=== PATIENT | female | born 2000 | race Caucasian/White ===

== ENCOUNTER 2022-06-11 17:00 | Inpatient (IN) | payer MEDICAID ==
--- NOTE | 2022-06-11 20:53 | History and Physical Report ---
History of Present Illness Date of examination: 06/11/22 Date of admission: 06/11/2022 Chief complaint: contractions and bleeding History of present illness: 21 yo female presents to labor and delivery complaining of contractions and bleeding. , EDD06/24/22, 38.1 wks gestation. States had adequate care since 10wks with [facility], and her was without complications. No medical records available at this time. GBS was done but unknown results. Patient also states she was adopted. Past History Past Medical History: no pertinent history Past Surgical History: no surgical history Family/Genetic History: none Social history: no significant social history - Obstetrical History Expected Date of Delivery: 06/24/22 Actual Gestation: 38 Week(s) 1 Day(s) : 2 Para: 0 Hx # Term Pregnancies: 0 Number of Pregnancies: 0 Spontaneous Abortions: 0 Induced : 1 Number of Living Children: 0 Medications and Allergies Allergies Allergy/AdvReac Type Severity Reaction Status Date / Time Penicillins Allergy Severe Anaphylaxis Verified 06/11/22 20:56 - Vital Signs Vital signs: Vital Signs Pulse Pulse Ox 119 H 97 06/11/22 18:10 06/11/22 18:10 Temp Pulse Resp BP Pulse Ox 98.9 F 80 18 121/84 79 L 06/11/22 18:11 06/11/22 20:41 06/11/22 18:11 06/11/22 18:11 06/11/22 20:41 - Physical Exam Breasts: Positive: deferred Cardiovascular: Regular rate Lungs: Positive: Clear to auscultation, Normal air movement Abdomen: Positive: normal appearance Extremities: Positive: normal Deep Tendon Reflex Grade: Normal +2 - Obstetrical FHR: category 1 Uterine Contraction Monitor Mode: External Cervical Dilatation: 4 (by RN) Cervical Effacement Percentage: 90 station: -1 Uterine Contraction Pattern: Irregular Uterine Contraction Intensity: Moderate Results All other labs normal. Assessment and Plan A: @38.1 wks GBs unknown PCN allergy P: admit to labor and delivery prophylactic antibiotic for unknown GBS Pitocin augmentation
[2022-06-11] MEDS ORDERED: CARBOPROST TROMETHAMINE 250 MCG/1 ML INJ IM PRN (21:03)
[2022-06-11] MEDS ORDERED: ePHEDrine SULFATE 50 MG/1 ML INJ IV PRN (21:03)
[2022-06-11] MEDS ORDERED: METHYLERGONOVINE MALEATE 0.2 MG/ML VIAL IM PRN (21:03)
[2022-06-11] MEDS ORDERED: NALOXONE 0.4 MG/1 ML INJ IV PRN (21:03)
[2022-06-11] MEDS ORDERED: TERBUTALINE 1 MG/1 ML INJ SUB-Q PRN (21:03)
[2022-06-11] MEDS ORDERED: PROMETHAZINE 25 MG TAB PO PRN (21:03)
[2022-06-11] MEDS ORDERED: ONDANSETRON 4 MG/2 ML INJ IV PRN (21:03)
[2022-06-11] MEDS ORDERED: OXYTOCIN 10 UNIT/1 ML INJ IM PRN (21:03)
[2022-06-11] MEDS ORDERED: BUTORPHANOL 2 MG/1 ML INJ IV PRN ×2 (21:03)
[2022-06-11] MEDS ORDERED: miSOPROStol 200 MCG TAB PR PRN (21:03)
[2022-06-11] MEDS ORDERED: MINERAL OIL 30 ML ORAL LIQD PO PRN (21:03)
[2022-06-11] MEDS ORDERED: LIDOCAINE (2%) 20 MG/1 ML VIAL 20 ML MDV INFILTRATI ONE (21:03)
[2022-06-11] MEDS ORDERED: ACETAMINOPHEN 325 MG TAB PO PRN (21:03)
[2022-06-11] MEDS ORDERED: LOPERAMIDE 2 MG CAP PO PRN (21:03)
[2022-06-11] MEDS ORDERED: OXYTOCIN DRIP 30 UNITS/500 ML BAG IV SCH ×2 (22:00)
[2022-06-11 22:14] LABS: Hematocrit 32.2 % (30.3-42.9); Mean Corpuscular HGB Conc 34 % (30-34); Mean Corpuscular Volume 84 fl (79-97); Platelet Count 238 K/mm3 (140-440); Red Blood Count 3.85 M/mm3 (3.65-5.03); Red Cell Distribution Width 13.8 % (13.2-15.2)
[2022-06-12] MEDS: LACTATED RINGERS 1,000 ML IV SCH ×2 (00:14→02:42)
[2022-06-12] MEDS ORDERED: ePHEDrine SULFATE 50 MG/1 ML INJ IV PRN (01:40)
[2022-06-12] MEDS ORDERED: NALOXONE 0.4 MG/1 ML INJ IV PRN (01:40)
[2022-06-12] MEDS ORDERED: fentaNYL-BUPIV 2 MCG/ML-0.125% 200 MCG/100 ML BAG EPIDURAL SCH (01:40)
--- NOTE | 2022-06-12 01:41 | Anesthesia Consultation ---
Anesthesia Consult and Med Hx Date of service: 06/12/22 - Airway Anesthetic Teeth Evaluation: Good ROM Head & Neck: Adequate Mental/Hyoid Distance: Adequate Mallampati Class: Class II Intubation Access Assessment: Probably Good - Pulmonary Exam CTA: Yes - Cardiac Exam Cardiac Exam: RRR - Pre-Operative Health Status ASA Pre-Surgery Classification: ASA2 Proposed Anesthetic Plan: Epidural - Pulmonary Hx Smoking: No Hx Asthma: No Hx Respiratory Symptoms: No SOB: No COPD: No Home Oxygen Therapy: No Hx Pneumonia: No Hx Sleep Apnea: No - Cardiovascular System Hx Hypertension: No Hx Coronary Artery Disease: No Hx Heart Attack/AMI: No Hx Angina: No Hx Percutaneous Transluminal Coronary Angioplasty (PTCA): No Hx Cardia Arrhythmia: No Hx Pacemaker: No Hx Internal Defibrillator: No Hx Valvular Heart Disease: No Hx Heart Murmur: No Hx Peripheral Vascular Disease: No - Central Nervous System Hx Neuromuscular Disorder: No Hx Seizures: No CVA: No Hx Back Pain: No Hx Psychiatric Problems: No - Gastrointestinal Hx Ulcer: No Hx Gastroesophageal Reflux Disease: No - Endocrine Hx Renal Disease: No Hx End Stage Renal Disease: No Hx Cirrhosis: No Hx Liver Disease: No Hx Insulin Dependent Diabetes: No Hx Non-Insulin Dependent Diabetes: No Hx Thyroid Disease: No Hx Hypothyroidism: No Hx Hyperthyroidism: No - Hematic Hx Anemia: No Hx Sickle Cell Disease: No - Other Systems Hx Alcohol Use: No Hx Substance Use: No Hx Cancer: No Hx Obesity: No
--- NOTE | 2022-06-12 01:42 | Anesthesia Day of Surgery ---
Anesthesia Day of Surgery - Day of Surgery Patient Examined: Yes Patient H&P Reviewed: Yes Patient is NPO: Yes Beta Blockers: No Cardiac Clearance: No Pulmonary Clearance: No Tim's Test: N/A
--- NOTE | 2022-06-12 01:45 | Progress Note ---
Labor Epidural - Labor Epidural Start Time: :17 Stop Time: : Performed by:: LARA MORALES Procedure: Epidural Requested for Labor Pain. H&P and PT Chart reviewed and consent obtained. Time out performed and the procedure was explained, all questions answered. Patient was placed in a sitting position with monitors applied. The PTs back was prepped and draped in usual sterile fashion. The Skin was localized with 3 mL of 1% lidocaine at L3-L4. A 17-gauge Touhy epidural needle was advanced to FLACO with saline at 7 cm and no blood/CSF was noted via epidural needle. Epidural catheter was advanced to 12 cm. There was negative aspiration for blood and CSF in the catheter and negative response to a test dose of 3 ml 1.5% lidocaine w/ Epi and a sterile dressing was applied Patient tolerated the procedure well and there were no immediate complications noted.
--- NOTE | 2022-06-12 08:20 | Event Note ---
Date: 06/12/22 S: Has epidural, no complaints O: VE 9/100/0, AROM clear fluid, Pit at 4 mu,Cat I tracing A: Active labor P: Expect
[2022-06-12] MEDS ORDERED: LIDOCAINE (2%) 20 MG/1 ML VIAL 20 ML MDV INFILTRATI ONE (10:05)
--- NOTE | 2022-06-12 10:41 | Procedure Note ---
OB Delivery Note - Delivery Date of Delivery: 06/12/22 Surgeon: MARIANA JONES Estimated blood loss: 100cc - Vaginal Delivery presentation: vertex Delivery position: OA Intrapartum events: none Delivery augmentation: rupture of membranes, pitocin Delivery monitor: external FHT, external uterine Route of delivery: Delivery placenta: spontaneous Delivery cord: 3 umbilical vessels Episiotomy: none Delivery laceration: other (Vaginal side wall and right labial, repaired with 2- 0 vicryl, local anesthesia) Delivery repair: vicryl Anesthesia: local, epidural Delivery comments: of a viable male 6# 11oz on 06/12/2022 @ 1018 over intact perineum. 9/9. Placenta delivered 3VCI. Vag floor and right labial laceration repaired with 2-0 vicryl under local anesthesia as Epidural bag ran out. QBL 100 cc. Mother and baby doing well. - Infant A at 1 minute: 9 at 5 minutes: 9 Gender: Male
[2022-06-12] MEDS ORDERED: ACETAMINOPHEN 325 MG TAB PO PRN (11:00)
[2022-06-12] MEDS ORDERED: WITCH HAZEL/ GLYCERIN PAD TP PRN (11:00)
[2022-06-12] MEDS ORDERED: diphenhydrAMINE 25 MG CAP PO PRN (11:00)
[2022-06-12] MEDS ORDERED: LANOLIN/ZINC/DIMETHICONE (LANSINOH) 7 GM TP PRN (11:00)
[2022-06-12] MEDS: IBUPROFEN 800 MG TAB PO SCH ×3 (11:48→23:35)
[2022-06-12] MEDS: oxyCODONE /ACETAMINOPHEN 5-325MG TAB PO PRN (13:04)
--- NOTE | 2022-06-12 17:47 | Post Anesthesia Evaluation ---
- Post Anesthesia Evaluation Patient Participated: Yes Airway Patent: Yes Stable Respiratory Function: Yes Nausea/Vomiting: No Temp > 96.8F: Yes Pain Manageable: Yes Adequeate Hydration: Yes Anesthesia Complications: No Block Receding Appropriately: Yes Patient on Ventilator: No
[2022-06-12] MEDS ORDERED: MAGNESIUM HYDROXIDE (MOM) ORAL LIQD UDC PO PRN (22:00)
[2022-06-12 23:42] LABS: Hematocrit 28.3 % (30.3-42.9); Hemoglobin 9.6 gm/dl (10.1-14.3)
[2022-06-13] MEDS: oxyCODONE /ACETAMINOPHEN 5-325MG TAB PO PRN ×2 (01:03→20:54)
[2022-06-13] MEDS: IBUPROFEN 800 MG TAB PO SCH ×2 (08:20→13:49)
--- NOTE | 2022-06-13 10:37 | Progress Note ---
Assessment and Plan A: PPD # 1 - stable P: Plan discharge home tomorrow Discharge instructions given Subjective - Subjective Date of service: 06/13/22 Principal diagnosis: PPD # 1 - stable Patient reports: appetite normal : doing well Objective - Vital Signs Latest vital signs: Vital Signs Temp Pulse Resp BP BP Pulse Ox Pulse Ox 06/13/22 08:00 98 06/13/22 07:15 97.6 F 85 16 113/72 98 06/12/22 23:39 98.2 F 115 H 20 103/65 99 06/12/22 15:23 98.4 F 98 H 18 104/67 98 06/12/22 12:45 98.9 F 112 H 18 115/68 97 97 06/12/22 11:36 118 H 110/76 06/12/22 11:35 114 H 100 06/12/22 11:30 116 H 99 06/12/22 11:25 103 H 98 06/12/22 11:21 102 H 112/76 06/12/22 11:20 100 H 100 06/12/22 11:15 100 H 99 06/12/22 11:10 102 H 100 06/12/22 11:06 102 H 121/73 06/12/22 11:05 114 H 100 06/12/22 11:00 109 H 100 06/12/22 10:55 111 H 100 06/12/22 10:51 106 H 116/70 06/12/22 10:50 107 H 100 06/12/22 10:46 116 H 94 06/12/22 10:45 112 H 99 06/12/22 10:40 119 H 98 06/12/22 10:36 122 H 110/64 Intake and Output 06/12/22 06/13/22 06/13/22 22:59 06:59 14:59 Intake Total 240 Output Total 600 400 Balance -600 -160 Intake: Oral 240 Output: Urine 600 400 Void 600 400 Other: Total, Intake Amount 240 Total, Output Amount 600 400 # Voids Void 1 - Exam Breasts: Present: deferred Cardiovascular: Present: Regular rate Lungs: Present: Clear to auscultation Abdomen: Present: soft Uterus: Present: fundal height below umbilicus Deep Tendon Reflex Grade: Normal +2 - Labs Labs: Abnormal lab results 06/12/22 Range/Units 22:41 Hgb 9.6 L (10.1-14.3) gm/dl Hct 28.3 L (30.3-42.9) %
--- NOTE | 2022-06-13 10:42 | Discharge Summary ---
Providers - Providers Date of Admission: 06/11/22 21:04 Date of discharge: 06/14/22 Attending physician: DUANE ABRAHAM MD Primary care physician: DUANE ABRAHAM MD Hospitalization Reason for admission: active labor Delivery: Episiotomy: none Laceration: vaginal side wall (labial lac), 1st degree Other procedures: none complications: none Discharge diagnosis: IUP at term delivered Docena baby: male Condition at discharge: Good Disposition: 01 HOME / SELF CARE / HOMELESS Plan - Provider Discharge Summary Activity: routine, no sex for 6 weeks, no strenuous exercise Diet: routine Instructions: routine Additional instructions: [] Smoking cessation referral if applicable(refer to patient education folder for contact #) [] Refer to [facility]'s [facility] Booklet Call your doctor immediately for: * Fever > 100.5 * Heavy vaginal bleeding ( >1 pad per hour) * Severe persistent headache * Shortness of breath * Reddened, hot, painful area to leg or breast * Drainage or odor from incision. * Keep incision clean and dry at all times and follow doctor's instructions regarding bathing/showering - Follow up plan Follow up: DUANE ABRAHAM MD [Primary Care Provider] - 6 Weeks
[2022-06-14] MEDS: IBUPROFEN 800 MG TAB PO SCH (01:14)
[2022-06-14 10:12] VITALS: BP 113/78
== END 2022-06-14 13:20 | disposition home or self-care (01) | DRG 775 ==
LOC: TRG 17:00 → LD 17:11 → APU 17:13 → TRG 21:04 → LD 06-12 00:49 → OB 06-12 12:37
PROVIDERS: ADMIT Obstetrics & Gynecology Gynecology; ATTEND Obstetrics & Gynecology Gynecology
PROC: 10E0XZZ Delivery of Products of Conception, External Approach (ICD-10-PCS; principal; 2022-06-12)
PROC: 3E0R3BZ Introduction of Anesthetic Agent into Spinal Canal, Percutaneous Approach (ICD-10-PCS; 2022-06-12)
PROC: 00HU33Z Insertion of Infusion Device into Spinal Canal, Percutaneous Approach (ICD-10-PCS; 2022-06-12)
PROC: 10907ZC Drainage of Amniotic Fluid, Therapeutic from Products of Conception, Via Natural or Artificial Opening (ICD-10-PCS; 2022-06-12)
PROC: 0HQ9XZZ Repair Perineum Skin, External Approach (ICD-10-PCS; 2022-06-12)
DX: O70.0 First degree perineal laceration during delivery (principal); Z37.0 Single live birth; Z20.822 Contact with and (suspected) exposure to COVID-19; Z3A.38 38 weeks gestation of pregnancy; Z88.0 Allergy status to penicillin
CPT/HCPCS: 36415; 59025; 85014; 85018; 85027; 86592; 86706; 86762; 86850; 86900; 86901; 87806; 96360; G0378; J3490; J7502; J0595; J2590; J7120; U0003